=== PATIENT | male | born 1995 | race Caucasian/White ===

== ENCOUNTER 2019-09-01 21:06 | Emergency (ER) | payer MEDICAID ==
[~2019-09-01] VITALS: Ht 182.9 cm; Wt 104.5 kg
[2019-09-01 21:14] VITALS: BP 133/68
[2019-09-01] MEDS ORDERED: TAMIFLU 75MG75 MG PO (22:26)
[2019-09-01 22:39] VITALS: PULSE 94; TEMP 98.4
== END 2019-09-01 22:39 | disposition home or self-care (01) ==
LOC: COL.ER 21:06
DX: J11.1 Influenza due to unidentified influenza virus with other respiratory manifestations (principal); F17.210 Nicotine dependence, cigarettes, uncomplicated

== ENCOUNTER 2019-12-04 07:37 | Emergency (ER) | payer MEDICAID ==
[~2019-12-04] VITALS: Ht 180.3 cm; Wt 109.1 kg
[~2019-12-04 07:37] MED LIST: TAMIFLU 75MG75 MG PO
[2019-12-04 07:38] VITALS: TEMP 98.2
[2019-12-04] MEDS ORDERED: NORCO 325 MG-51 TAB PO (08:28)
[2019-12-04 09:00] VITALS: BP 152/100
[2019-12-04 09:32] VITALS: PULSE 81
== END 2019-12-04 09:37 | disposition home or self-care (01) ==
LOC: COL.ER 07:37
DX: S82.302A Unspecified fracture of lower end of left tibia, initial encounter for closed fracture (principal); S82.832A Other fracture of upper and lower end of left fibula, initial encounter for closed fracture; X50.1XXA Overexertion from prolonged static or awkward postures, initial encounter
CPT/HCPCS: J3010; Q4045

== ENCOUNTER 2019-12-28 21:17 | Emergency (ER) | payer MEDICAID ==
[~2019-12-28] VITALS: Ht 177.8 cm; Wt 109.1 kg
[~2019-12-28 21:17] MED LIST changes: +NORCO 325 MG-51 TAB PO
[2019-12-28 21:26] VITALS: BP 132/71; TEMP 98.3
[2019-12-28 23:01] VITALS: PULSE 94
== END 2019-12-28 23:01 | disposition home or self-care (01) ==
LOC: COL.ER 21:17
DX: G89.18 Other acute postprocedural pain (principal); M25.572 Pain in left ankle and joints of left foot; F17.210 Nicotine dependence, cigarettes, uncomplicated

== ENCOUNTER 2020-12-29 18:17 | Emergency (ER) | payer SELFPAY | END 2020-12-29 18:45 | disposition left against medical advice (07) | LOC: COL.ER 18:17 | DX: Z00.00 Encounter for general adult medical examination without abnormal findings (principal) ==

== ENCOUNTER 2021-01-28 06:06 | Emergency (ER) | payer MEDICAID ==
[~2021-01-28] VITALS: Ht 180.3 cm; Wt 127.3 kg
[2021-01-28 06:09] VITALS: BP 113/80; PULSE 85; TEMP 99.3
[2021-01-28] MEDS ORDERED: CLEOCIN HCL300 MG PO (06:33)
== END 2021-01-28 06:58 | disposition home or self-care (01) ==
LOC: COL.ER 06:06
DX: L02.01 Cutaneous abscess of face (principal); F17.210 Nicotine dependence, cigarettes, uncomplicated

== ENCOUNTER 2021-05-28 08:12 | Emergency (ER) | payer MEDICAID ==
[~2021-05-28] VITALS: Ht 180.3 cm; Wt 129.5 kg
[~2021-05-28 08:12] MED LIST changes: +CLEOCIN HCL300 MG PO
[2021-05-28 08:20] VITALS: TEMP 99
[2021-05-28] MEDS ORDERED: NORCO 325 MG-51 TAB PO (09:18)
[2021-05-28 10:45] VITALS: BP 120/98; PULSE 75
== END 2021-05-28 10:50 | disposition home or self-care (01) ==
LOC: COL.ER 08:12
DX: S62.300A Unspecified fracture of second metacarpal bone, right hand, initial encounter for closed fracture (principal); Z87.891 Personal history of nicotine dependence; W22.8XXA Striking against or struck by other objects, initial encounter

== ENCOUNTER 2021-08-14 10:44 | Emergency (ER) | payer MEDICAID ==
[~2021-08-14] VITALS: Ht 180.3 cm; Wt 127.3 kg
[2021-08-14 11:07] VITALS: TEMP 98.2
[2021-08-14] MEDS ORDERED: MOTRIN 800800 MG/TAB PO (13:05)
[2021-08-14] MEDS ORDERED: CRUTCHES MC (13:06)
[2021-08-14 13:20] VITALS: BP 118/76; PULSE 72
== END 2021-08-14 13:20 | disposition home or self-care (01) ==
LOC: COL.ER 10:44
DX: S93.402A Sprain of unspecified ligament of left ankle, initial encounter (principal); X50.9XXA Other and unspecified overexertion or strenuous movements or postures, initial encounter; Y93.89 Activity, other specified

== ENCOUNTER 2021-09-20 19:50 | Emergency (ER) | payer OTHER, MEDICAID ==
[~2021-09-20] VITALS: Ht 180.3 cm; Wt 127.3 kg
[~2021-09-20 19:50] MED LIST changes: +CRUTCHES MC; +MOTRIN 800800 MG/TAB PO
[2021-09-20 20:34] VITALS: BP 137/88; PULSE 97; TEMP 97.8
== END 2021-09-20 20:34 | disposition home or self-care (01) ==
LOC: COL.ER 19:50
DX: S06.0X0A Concussion without loss of consciousness, initial encounter (principal); W22.8XXA Striking against or struck by other objects, initial encounter; Y92.59 Other trade areas as the place of occurrence of the external cause; Y99.0 Civilian activity done for income or pay

== ENCOUNTER 2022-02-10 20:16 | Emergency (ER) | payer MEDICAID ==
[2022-02-10] MEDS ORDERED: CAPLYTA42 MG PO (21:27)
[2022-02-10 21:28] VITALS: BP 114/69; PULSE 84; TEMP 98.4
== END 2022-02-10 21:57 | disposition left against medical advice (07) ==
LOC: COL.ER 20:16
DX: U07.1 COVID-19 (principal); R00.2 Palpitations

== ENCOUNTER 2022-04-06 23:41 | Emergency (ER) | payer MEDICAID ==
[~2022-04-06] VITALS: Ht 177.8 cm; Wt 109.1 kg
[~2022-04-06 23:41] MED LIST changes: +CAPLYTA42 MG PO
[2022-04-06 23:50] VITALS: TEMP 97.1
[2022-04-07 00:58] LABS: BASO # 0.1 K/mm3 (0.0-0.2); BASO % 0.8 % (0.0-2.0); EOS # 0.2 K/mm3 (0.0-0.7); EOS % 2.6 % (0.0-4.0); GRAN # 4.9 K/mm3 (1.4-6.5); GRAN % 58.9 % (42.2-75.2); HEMATOCRIT 42.8 % (42.0-52.0); HEMOGLOBIN 14.9 g/dl (13.5-18.0); LYMPH # 2.6 K/mm3 (1.2-3.4); LYMPH % 30.6 % (20.0-51.0); MEAN CELL VOLUME 93 fl (80.0-100.0); MEAN CORPUSCULAR HEMOGLOBIN 32 pg (27-31); MEAN CORPUSCULAR HGB CONC 35 g/dl (33.0-37.0); MEAN PLATELET VOLUME 10.6 fl (7.4-10.4); MONO # 0.6 K/mm3 (0.1-0.6); MONO % 6.7 % (1.7-9.3); PLATELET COUNT 291 K/mm3 (130-400); REDCELL DISTRIBUTION WIDTH-CV 12.4 % (11.5-14.5)
[2022-04-07 01:11] LABS: CALCIUM 9.1 mg/dL (8.4-10.2); CREATININE, serum 0.77 mg/dL (0.72-1.25); POTASSIUM 3.4 mmol/L (3.5-4.5)
[2022-04-07 08:30] VITALS: BP 133/87; PULSE 70
== END 2022-04-07 08:30 | disposition short-term general hospital (02) ==
LOC: COL.ER 23:41
PROVIDERS: Emergency Medicine
DX: G93.89 Other specified disorders of brain (principal); I10 Essential (primary) hypertension; Z20.822 Contact with and (suspected) exposure to COVID-19; Z79.899 Other long term (current) drug therapy
CPT/HCPCS: J0360; J1100; J1170; J1200; J1885; J2270; J2405; J2765; J3475

== ENCOUNTER 2022-04-17 05:53 | Emergency (ER) | payer MEDICAID ==
[~2022-04-17] VITALS: Ht 177.8 cm; Wt 111.4 kg
[2022-04-17 05:55] VITALS: TEMP 97.3
[2022-04-17 06:35] LABS: HEMATOCRIT 43.9 % (42.0-52.0); MEAN CELL VOLUME 96 fl (80.0-100.0); MEAN CORPUSCULAR HEMOGLOBIN 33 pg (27-31); MEAN CORPUSCULAR HGB CONC 34 g/dl (33.0-37.0); MEAN PLATELET VOLUME 10.4 fl (7.4-10.4); PLATELET COUNT 347 K/mm3 (130-400); RED BLOOD COUNT 4.59 M/mm3 (4.20-5.60); REDCELL DISTRIBUTION WIDTH-CV 12.6 % (11.5-14.5)
[2022-04-17 06:50] LABS: ALBUMIN 3.4 gm/dL (3.5-5.0); BILIRUBIN,TOTAL 0.3 mg/dL (0.2-1.2); CALCIUM 9.5 mg/dL (8.4-10.2); CREATININE, serum 0.68 mg/dL (0.72-1.25); POTASSIUM 4.4 mmol/L (3.5-4.5); TOTAL PROTEIN 6.2 gm/dL (6.2-8.1)
[2022-04-17 06:52] LABS: BAND 1 % (0-10); LYMPHOCYTE 9 % (20.0-51.0); METAMYELOCYTE 1 % (0-0); MYELOCYTE 2 % (0-0); NEUTROPHILS 81 % (42.0-75.2)
[2022-04-17 06:53] LABS: PLATELET ESTIMATE NORMAL (NORMAL)
[2022-04-17 06:56] LABS: TROPONIN-I 0.01 ng/mL (0.00-0.033)
[2022-04-17 08:03] VITALS: BP 129/87; PULSE 85
[2022-04-17 11:20] LABS: PATHOLOGY DIFF REVIEW OK +
== END 2022-04-17 08:04 | disposition home or self-care (01) ==
LOC: COL.ER 05:53
PROVIDERS: Emergency Medicine
DX: R07.2 Precordial pain (principal); D72.829 Elevated white blood cell count, unspecified; R74.02 Elevation of levels of lactic acid dehydrogenase [LDH]

== ENCOUNTER 2022-04-18 19:42 | Emergency (ER) | payer MEDICAID ==
[~2022-04-18] VITALS: Ht 177.8 cm; Wt 112.7 kg
[2022-04-18 19:43] VITALS: TEMP 97.8
[2022-04-18 20:10] LABS: HEMOGLOBIN 15.8 g/dl (13.5-18.0); MEAN CELL VOLUME 94 fl (80.0-100.0); MEAN CORPUSCULAR HEMOGLOBIN 33 pg (27-31); MEAN CORPUSCULAR HGB CONC 35 g/dl (33.0-37.0); MEAN PLATELET VOLUME 10.2 fl (7.4-10.4); PLATELET COUNT 335 K/mm3 (130-400); RED BLOOD COUNT 4.78 M/mm3 (4.20-5.60); REDCELL DISTRIBUTION WIDTH-CV 12.3 % (11.5-14.5)
[2022-04-18 20:26] LABS: ALANINE AMINOTRANSFERASE 85 U/L (0-55); ALBUMIN 3.3 gm/dL (3.5-5.0); ALKALINE PHOSPHATASE 82 U/L (40-150); ANION GAP 15 mmol/L (7-16); AST,SGOT 23 U/L (5-34); BILIRUBIN,TOTAL 0.3 mg/dL (0.2-1.2); BLOOD UREA NITROGEN 23 mg/dL (9-21); CALCIUM 9.4 mg/dL (8.4-10.2); CARBON DIOXIDE 24 mmol/L (22-29); CHLORIDE 97 mmol/L (98-107); CREATININE, serum 0.73 mg/dL (0.72-1.25); GLUCOSE 99 mg/dL (70-99); POTASSIUM 4.5 mmol/L (3.5-4.5); SODIUM 136 mmol/L (136-145); TOTAL PROTEIN 6.4 gm/dL (6.2-8.1)
[2022-04-18 20:29] LABS: BAND 1 % (0-10); LYMPHOCYTE 15 % (20.0-51.0); METAMYELOCYTE 1 % (0-0); NEUTROPHILS 82 % (42.0-75.2); PLATELET ESTIMATE NORMAL (NORMAL)
[2022-04-18 20:46] LABS: TSH w REFLEX 1.099 uIU/mL (0.350-4.940)
[2022-04-18 21:07] LABS: COLLECTION METHOD CLEAN CATCH
[2022-04-18 21:12] LABS: URINE APPEARANCE Clear (CLEAR/HAZY); URINE BLOOD Negative (NEGATIVE); URINE COLOR Yellow (YELLOW); URINE GLUCOSE Negative (NEGATIVE); URINE KETONE Negative (NEGATIVE); URINE NITRATE Negative (NEGATIVE); URINE PROTEIN(semi-quant) Negative (NEGATIVE); URINE UROBILINOGEN 0.2 E.U/dL (0.2-1.0)
[2022-04-18 21:16] LABS: SQUAMOUS EPITHELIAL None Seen /hpf (0-10); URINE BACTERIA None Seen /hpf (NONE SEEN); URINE RBC None Seen /hpf (0-2)
[2022-04-18 21:26] LABS: TROPONIN-I < 0.010 ng/mL (0.00-0.033)
[2022-04-18 22:47] VITALS: BP 126/75; PULSE 61
== END 2022-04-18 22:47 | disposition home or self-care (01) ==
LOC: COL.ER 19:42
PROVIDERS: Emergency Medicine
DX: R51.9 Headache, unspecified (principal); D72.829 Elevated white blood cell count, unspecified; R74.02 Elevation of levels of lactic acid dehydrogenase [LDH]; R42 Dizziness and giddiness; Z98.890 Other specified postprocedural states; Z20.822 Contact with and (suspected) exposure to COVID-19
CPT/HCPCS: J7120

== ENCOUNTER 2022-04-19 19:56 | Emergency (ER) | payer MEDICAID ==
[~2022-04-19] VITALS: Ht 177.8 cm; Wt 113.6 kg
[2022-04-19 20:00] VITALS: TEMP 97.7
[2022-04-19 21:01] LABS: HEMATOCRIT 49.5 % (42.0-52.0); MEAN CELL VOLUME 95 fl (80.0-100.0); MEAN CORPUSCULAR HEMOGLOBIN 32 pg (27-31); MEAN CORPUSCULAR HGB CONC 34 g/dl (33.0-37.0); MEAN PLATELET VOLUME 10.6 fl (7.4-10.4); PLATELET COUNT 334 K/mm3 (130-400); RED BLOOD COUNT 5.24 M/mm3 (4.20-5.60); REDCELL DISTRIBUTION WIDTH-CV 12.5 % (11.5-14.5)
[2022-04-19 21:16] LABS: ALBUMIN 3.7 gm/dL (3.5-5.0); BILIRUBIN,TOTAL 0.5 mg/dL (0.2-1.2); CALCIUM 9.6 mg/dL (8.4-10.2); CREATININE, serum 0.82 mg/dL (0.72-1.25); POTASSIUM 4.8 mmol/L (3.5-4.5); TOTAL PROTEIN 7.3 gm/dL (6.2-8.1)
[2022-04-19 21:22] LABS: TROPONIN-I 0.012 ng/mL (0.00-0.033)
[2022-04-19 21:43] LABS: LYMPHOCYTE 8 % (20.0-51.0); METAMYELOCYTE 3 % (0-0); NEUTROPHILS 82 % (42.0-75.2); PLATELET ESTIMATE NORMAL (NORMAL)
[2022-04-19 23:35] LABS: COLLECTION METHOD CLEAN CATCH
[2022-04-19 23:41] LABS: MUCOUS Present (NOT PRESENT); SQUAMOUS EPITHELIAL 0-2 /hpf (0-10); URINE BACTERIA Rare /hpf (NONE SEEN); URINE RBC None Seen /hpf (0-2)
[2022-04-19 23:42] LABS: URINE APPEARANCE Clear (CLEAR/HAZY); URINE BLOOD Negative (NEGATIVE); URINE COLOR Yellow (YELLOW); URINE GLUCOSE Negative (NEGATIVE); URINE KETONE 1+ (NEGATIVE); URINE NITRATE Negative (NEGATIVE); URINE PROTEIN(semi-quant) Negative (NEGATIVE); URINE UROBILINOGEN 0.2 E.U/dL (0.2-1.0)
[2022-04-20 07:28] VITALS: BP 115/74; PULSE 53
== END 2022-04-20 07:40 | disposition short-term general hospital (02) ==
LOC: COL.ER 19:56
PROVIDERS: Emergency Medicine
DX: R65.10 Systemic inflammatory response syndrome (SIRS) of non-infectious origin without acute organ dysfunction (principal); E87.2 Acidosis; D72.829 Elevated white blood cell count, unspecified; Z20.822 Contact with and (suspected) exposure to COVID-19
CPT/HCPCS: J0692; J2405; J3370; J7040; J7120